=== PATIENT | female | born 1950 | race Caucasian/White ===

== ENCOUNTER 2020-10-16 23:06 | Emergency (ER) | payer MEDICARE ==
[~2020-10-16] VITALS: Ht 149.9 cm; Wt 113.4 kg
== END 2020-10-17 04:35 | disposition home or self-care (01) ==
LOC: ER 23:06
DX: I10 Essential (primary) hypertension (principal); Z88.2 Allergy status to sulfonamides; Z91.041 Radiographic dye allergy status
CPT/HCPCS: 82947; 99284; A9270